=== PATIENT | male | born 1955 | race Caucasian/White ===

== ENCOUNTER 2019-03-17 18:42 | Emergency (ER) | payer MEDICAID ==
[~2019-03-17] VITALS: Ht 182.9 cm; Wt 97.3 kg
[2019-03-17 19:31] LABS: BASOPHILS # (AUTO) 0.04 x10^3/uL (0-0.1); BASOPHILS % (AUTO) 0 % (0-1); EOSINOPHILS # (AUTO) 0.23 x10^3/uL (0-0.4); EOSINOPHILS % (AUTO) 2 % (1-7); LYMPHOCYTES # (AUTO) 1.26 x10^3/uL (1-3.4); LYMPHOCYTES % (AUTO) 12 % (22-44); MD NO; MEAN CORPUSCULAR HEMOGLOBIN 30.4 pg (27.5-34.5); MEAN CORPUSCULAR HGB CONC 33.3 g/dL (33.2-36.2); MEAN CORPUSCULAR VOLUME 91.3 fL (81-97); MEAN PLATELET VOLUME 7.7 fL (7.4-10.4); MONOCYTES # (AUTO) 0.65 x10^3/uL (0.2-0.8); MONOCYTES % (AUTO) 6 % (2-9); NEUTROPHILS # (AUTO) 8.43 x10^3/uL (1.8-6.8); NEUTROPHILS % (AUTO) 80 % (42-75); PLATELET COUNT 244 x10^3/uL (130-400); RED BLOOD COUNT 5.55 x10^6/uL (4.38-5.82)
[2019-03-17 19:41] LABS: ALANINE AMINOTRANSFERASE 25 U/L (12-78); ALBUMIN 3.3 g/dL (3.4-5.0); ANION GAP 8 mmol/L (5-15); CALCIUM 8.2 mg/dL (8.5-10.1); CHLORIDE 109 mmol/L (98-107)
[2019-03-17 19:45] LABS: ALKALINE PHOSPHATASE 83 U/L (45-117); BILIRUBIN,TOTAL 0.7 mg/dL (0.2-1.0); TOTAL PROTEIN 6.9 g/dL (6.4-8.2); TROPONIN I < 0.015 ng/mL (0.000-0.045)
[2019-03-17 19:58] VITALS: BP 144/86
--- NOTE | 2019-03-17 19:58 | NUR ---
PT RESTING ON GURNEY, AT BEDSIDE. NO ACUTE DISTRESS NOTED, PT SPEAKING IN FULL SENTENCES. VSS AND WILL CONT TO MONITOR.
[2019-03-17 20:09] LABS: RAPID INFLUENZA A Negative (Negative); RAPID INFLUENZA B Negative (Negative)
== END 2019-03-17 21:04 | disposition home or self-care (01) ==
LOC: ED 19:36
DX: J06.9 Acute upper respiratory infection, unspecified (principal)
CPT/HCPCS: 36415; 71045; 80053; 83880; 84484; 85025; 87400; 99284

== ENCOUNTER 2019-08-01 23:04 | Emergency (ER) | payer SELFPAY ==
[~2019-08-01] VITALS: Ht 182.9 cm; Wt 91.4 kg
[2019-08-01] MEDS ORDERED: ONDANSETRON 2MG/ML, 2ML ONE (23:30)
[2019-08-01] MEDS ORDERED: SODIUM CHLORIDE 0.9% 1,000ML IVBOLUS ONE (23:30)
[2019-08-01] MEDS ORDERED: SODIUM CHLORIDE FLUSH 10ML SYR IVF ONE (23:30)
[2019-08-01] MEDS ORDERED: ONDANSETRON 2MG/ML, 2ML IVPush ONE (23:30)
--- NOTE | 2019-08-01 23:30 | NUR ---
PT TO ED WITH C/O 4 DAY HX OF LOWER ABDOMINAL PAIN, NAUSEA AND VOMITING. DENIES CHEST PAIN, SHORTNESS OF BREATH OR FEVERS. REPORTS HE WAS SEEN HERE A FEW DAYS AGO AND IS NOT FEELING ANY BETTER.
--- NOTE | 2019-08-01 23:45 | NUR ---
IV STARTED IN [facility]. IVF BOLUS RUNNING AND ZOFRAN GIVEN. PT AWARE OF THE NEED FOR URINE SAMPLE.
--- NOTE | 2019-08-01 23:54 | NUR ---
PT TO XRAY
--- NOTE | 2019-08-02 00:09 | NUR ---
Lora rn: Pt back from imaging. This rn attempted to collect UA. Pt refuses ability to. "believe me, im workin on it. I'll let you know when i can."
[2019-08-02 00:11] LABS: ALANINE AMINOTRANSFERASE 23 U/L (12-78); ALBUMIN 3.2 g/dL (3.4-5.0); ANION GAP 8 mmol/L (5-15); CALCIUM 8.1 mg/dL (8.5-10.1); CHLORIDE 103 mmol/L (98-107); CREATININE 1.65 mg/dL (0.7-1.3)
[2019-08-02 00:13] LABS: BASOPHILS % (AUTO) 0 % (0-1); EOSINOPHILS # (AUTO) 0.03 x10^3/uL (0-0.4); EOSINOPHILS % (AUTO) 1 % (1-7); LYMPHOCYTES # (AUTO) 0.39 x10^3/uL (1-3.4); LYMPHOCYTES % (AUTO) 10 % (22-44); MD NO; MEAN CORPUSCULAR HEMOGLOBIN 31.8 pg (27.5-34.5); MEAN CORPUSCULAR HGB CONC 34.3 g/dL (33.2-36.2); MEAN CORPUSCULAR VOLUME 92.7 fL (81-97); MONOCYTES # (AUTO) 0.34 x10^3/uL (0.2-0.8); MONOCYTES % (AUTO) 9 % (2-9); NEUTROPHILS # (AUTO) 3.23 x10^3/uL (1.8-6.8); NEUTROPHILS % (AUTO) 81 % (42-75); PLATELET COUNT 207 x10^3/uL (130-400); RED BLOOD COUNT 4.91 x10^6/uL (4.38-5.82); RED CELL DISTRIBUTION WIDTH 15.8 % (9.4-14.8)
[2019-08-02 00:16] LABS: ALKALINE PHOSPHATASE 75 U/L (45-117); BILIRUBIN,TOTAL 1.2 mg/dL (0.2-1.0); TOTAL PROTEIN 7.1 g/dL (6.4-8.2); TROPONIN I < 0.015 ng/mL (0.000-0.045)
--- NOTE | 2019-08-02 00:24 | NUR ---
Lora rn: Cammie sent to lab. Given warm blanket per request.
[2019-08-02 00:37] LABS: MICROSCOPIC INDICATED
--- NOTE | 2019-08-02 01:30 | NUR ---
PT REPORTS FEELING BETTER. NO VOMITING WHILE IN ER.
[2019-08-02 01:50] VITALS: BP 133/81
== END 2019-08-02 01:53 | disposition home or self-care (01) ==
LOC: ED 08-02 00:18
DX: R11.2 Nausea with vomiting, unspecified (principal); R19.7 Diarrhea, unspecified; R10.9 Unspecified abdominal pain; I44.4 Left anterior fascicular block
CPT/HCPCS: 36415; 74022; 80053; 81001; 83690; 84484; 85025; 93005; 96361; 96374; 99285; J2405; J7030